=== PATIENT | female | born 1975 | race Caucasian/White ===

== ENCOUNTER 2017-08-31 15:18 | Outpatient (CLI) | payer BC ==
[2017-08-31 17:45] LABS: BASOPHILS % (AUTO) 0.6 %; EOSINOPHILS % (AUTO) 0.5 %; HGB - HEMOGLOBIN 11.4 g/dL (12.0-16.0); LYMPHOCYTES # (AUTO) 1.4 10^3/uL (1.5-3.5); MEAN CORPUSCULAR HEMOGLOBIN 29.3 pg (27.0-31.0); MEAN CORPUSCULAR VOLUME 88.6 fL (81.0-99.0); MEAN PLATELET VOLUME 9.9 fL (7.9-10.8); MONOCYTES # (AUTO) 0.4 10^3/uL (0.0-1.0); MONOCYTES % (AUTO) 9.2 %; NEUTROPHILS % (AUTO) 52.7 %; PLT - PLATELET COUNT 162 10^3/uL (130-450); RED CELL DISTRIBUTION WIDTH 13.7 % (12.0-15.0); WHITE BLOOD COUNT 3.8 x10^3/uL (4.8-10.8)
[2017-08-31 18:24] LABS: ALBUMIN 4.4 g/dL (3.2-5.5); ALBUMIN/GLOBULIN RATIO 1.7 (1.0-2.2); BILIRUBIN,TOTAL 0.3 mg/dL (0.2-1.0); CALCIUM 8.9 mg/dL (8.5-10.3); CREATININE 0.5 mg/dL (0.4-1.0)
[2017-08-31 18:30] LABS: T4 (THYROXINE) 8.27 ug/dL (6.09-12.23)
[2017-08-31 18:34] LABS: THYROID STIMULATING HORMONE 0.9 uIU/mL (0.34-5.60)
[2017-08-31 18:36] LABS: FREE T4 (FREE THYROXINE) 0.84 ng/dL (0.58-1.64)
[2017-09-03 11:21] LABS: THYROID PEROXIDASE ANTIBODIES 1 IU/mL (<9)
== END 2017-08-31 15:19 | disposition home or self-care (01) ==
LOC: LAB.F 15:18
PROVIDERS: ATTEND Nurse Practitioner Family
DX: R53.83 Other fatigue (principal); E55.9 Vitamin D deficiency, unspecified
CPT/HCPCS: 36415; 80053; 82306; 84436; 84439; 84443; 84481; 85025; 86376; 86800

== ENCOUNTER 2017-10-12 13:38 | Outpatient (CLI) | payer BC ==
[2017-10-12 17:40] LABS: BASOPHILS % (AUTO) 0.4 %; EOSINOPHILS % (AUTO) 0.7 %; HGB - HEMOGLOBIN 12.7 g/dL (12.0-16.0); LYMPHOCYTES # (AUTO) 1.4 10^3/uL (1.5-3.5); LYMPHOCYTES % (AUTO) 27.4 %; MEAN CORPUSCULAR HEMOGLOBIN 29.7 pg (27.0-31.0); MEAN CORPUSCULAR HGB CONC 32.5 g/dL (32.0-36.0); MEAN CORPUSCULAR VOLUME 91.4 fL (81.0-99.0); MEAN PLATELET VOLUME 9.7 fL (7.9-10.8); MONOCYTES # (AUTO) 0.4 10^3/uL (0.0-1.0); MONOCYTES % (AUTO) 8.8 %; NEUTROPHILS # (AUTO) 3.1 10^3/uL (1.5-6.6); NEUTROPHILS % (AUTO) 62.7 %; PLT - PLATELET COUNT 160 10^3/uL (130-450); RED BLOOD COUNT 4.28 10^6/uL (4.20-5.40); RED CELL DISTRIBUTION WIDTH 14.4 % (12.0-15.0)
[2017-10-12 18:19] LABS: % IRON SATURATION 15 % (20-50); IRON 43 ug/dL (28-170); TOTAL IRON BINDING CAPACITY 283 ug/dL (250-450); TRANSFERRIN 202 mg/dL (192-382)
== END 2017-10-12 13:39 | disposition home or self-care (01) ==
LOC: LAB.F 13:38
PROVIDERS: ATTEND Nurse Practitioner Family
DX: E55.9 Vitamin D deficiency, unspecified (principal); D50.9 Iron deficiency anemia, unspecified; R53.83 Other fatigue
CPT/HCPCS: 36415; 82306; 82728; 83540; 84466; 85025

== ENCOUNTER 2017-10-26 14:30 | Outpatient (CLI) | payer BC ==
[2017-10-26 19:07] LABS: ALBUMIN 4.1 g/dL (3.2-5.5); ALBUMIN/GLOBULIN RATIO 1.5 (1.0-2.2); BILIRUBIN,TOTAL 0.5 mg/dL (0.2-1.0); CALCIUM 8.7 mg/dL (8.5-10.3); CREATININE 0.6 mg/dL (0.4-1.0); TOTAL PROTEIN 6.9 g/dL (6.7-8.2)
[2017-10-26 19:08] LABS: FOLATE 23.27 ng/mL (5.90 - >24.8)
== END 2017-10-26 14:31 | disposition home or self-care (01) ==
LOC: LAB.F 14:30
PROVIDERS: ATTEND Nurse Practitioner Family
DX: E78.5 Hyperlipidemia, unspecified (principal); R53.83 Other fatigue; D64.9 Anemia, unspecified
CPT/HCPCS: 36415; 80053; 82607; 82746

== ENCOUNTER 2017-10-26 17:01 | Outpatient (CLI) | payer BC ==
--- NOTE | 2017-10-28 19:59 | Ultrasound Report ---
EXAM: THYROID ULTRASOUND EXAM DATE: 10/26/2017 06:24 PM. CLINICAL HISTORY: Increased neck pressure. History of multiple thyroid cysts. COMPARISON: 08/30/2015. TECHNIQUE: Real time sonographic imaging of the thyroid was performed by the wood sash and frame carpenter. Multiple re presentative static images were saved for review. FINDINGS: THYROID GLAND: Right Lobe: 4.8 x 1.4 x 1.7 cm, volume 5.9 cc. Normal background echotexture. Right Lobe Nodules: 1. Partially cystic nodule with no suspicious features, inferior pole, 1.0 x 0.6 x 0.9 cm, previously 1.2 x 0.8 x 1.2 cm. 2. Cyst with irregular margins, inferior pole, 0.6 x 0.4 x 0.5 cm. 3. Colloid cyst, inferior pole, 0.6 x 0.4 x 0.5 cm, previously 0.5 x 0.3 x 0.4 cm. Left Lobe: 4.2 x 1.4 x 1.6 cm, volume 4.9 cc. Normal background echotexture. Left Lobe Nodules: New heterogeneous mixed isoechoic/hypoechoic nodule with irregular/infiltrative ma rgins, midportion, 1.4 x 0.9 x 1.1 cm. Isthmus: 0.2 cm AP. Isthmic Nodules: None. LYMPH NODES: No adenopathy demonstrated in the central or lateral compartment. OTHER: None. IMPRESSION: 1. New heterogeneous left thyroid nodule with irregular/infiltrative margins, [place] high suspicion sono graphic pattern. Recommend tissue sampling with FNA. 2. No significant interval change in size or appearance of previously demonstrated partially cystic r ight thyroid nodule. 3. A cyst with irregular margins in the right inferior pole may represent a collapsing cyst. Management recommendations are based on 2015 [place] [employer] Management Guidelines for A dult Patients with Thyroid Nodules and Differentiated Thyroid Cancer. [facility] Referring Provider Line: [phone] SITE ID: [id number]
== END 2017-10-26 17:02 | disposition home or self-care (01) ==
LOC: DI 17:01
PROVIDERS: ATTEND Nurse Practitioner Family
DX: E04.1 Nontoxic single thyroid nodule (principal); E78.5 Hyperlipidemia, unspecified; R53.83 Other fatigue; D64.9 Anemia, unspecified
CPT/HCPCS: 36415; 76536; 80053; 82607; 82746

== ENCOUNTER 2018-08-26 08:40 | Outpatient (CLI) | payer BC ==
[2018-08-26 17:54] LABS: BASOPHILS % (AUTO) 0.5 %; EOSINOPHILS % (AUTO) 1.1 %; HGB - HEMOGLOBIN 13.1 g/dL (12.0-16.0); LYMPHOCYTES % (AUTO) 32.1 %; MEAN CORPUSCULAR HEMOGLOBIN 30.4 pg (27.0-31.0); MEAN CORPUSCULAR HGB CONC 33.1 g/dL (32.0-36.0); MEAN CORPUSCULAR VOLUME 91.8 fL (81.0-99.0); MEAN PLATELET VOLUME 9.9 fL (7.9-10.8); MONOCYTES # (AUTO) 0.3 10^3/uL (0.0-1.0); MONOCYTES % (AUTO) 9.5 %; NEUTROPHILS # (AUTO) 1.8 10^3/uL (1.5-6.6); NEUTROPHILS % (AUTO) 56.8 %; PLT - PLATELET COUNT 154 10^3/uL (130-450); RED CELL DISTRIBUTION WIDTH 13.4 % (12.0-15.0); WHITE BLOOD COUNT 3.1 x10^3/uL (4.8-10.8)
[2018-08-26 18:47] LABS: ALBUMIN 4.6 g/dL (3.2-5.5); ALBUMIN/GLOBULIN RATIO 1.6 (1.0-2.2); ALKALINE PHOSPHATASE 52 IU/L (42-121); ALT ALANINE AMINOTRANSFERASE 14 IU/L (10-60); AST ASPARTATE AMINOTRANSFERASE 19 IU/L (10-42); BILIRUBIN,TOTAL 0.7 mg/dL (0.2-1.0); BUN - BLOOD UREA NITROGEN 12 mg/dL (6-20); CARBON DIOXIDE - CO2 28 mmol/L (21-32); CHLORIDE 101 mmol/L (101-111); CHOL/HDL RATIO 3.1 (<4.4); CHOLESTEROL 176 mg/dL; CREATININE 0.6 mg/dL (0.4-1.0); GFR - MDRD 109 (>89); GLUCOSE 97 mg/dL (70-100); HDL CHOLESTEROL 56 mg/dL; IRON 80 ug/dL (28-170); LDL CHOLESTEROL,CALCULATED 101 mg/dL; LDL/HDL RATIO 1.8 (<4.4); SODIUM 137 mmol/L (135-145); TOTAL PROTEIN 7.5 g/dL (6.7-8.2); VLDL CHOLESTEROL 19 mg/dL
[2018-08-26 18:53] LABS: T4 (THYROXINE) 7.83 ug/dL (6.09-12.23)
[2018-08-26 18:57] LABS: FREE T3 4.4 pg/mL (2.5-3.9)
[2018-08-26 18:59] LABS: FREE T4 (FREE THYROXINE) 0.82 ng/dL (0.58-1.64)
[2018-08-26 19:00] LABS: THYROID STIMULATING HORMONE 1.84 uIU/mL (0.34-5.60)
[2018-08-26 19:02] LABS: FERRITIN 23.6 ng/mL (11.0-306.8)
[2018-08-27 07:12] LABS: PROGESTERONE <0.5 ng/mL
== END 2018-08-26 08:41 | disposition home or self-care (01) ==
LOC: LAB.F 08:40
PROVIDERS: ATTEND Nurse Practitioner Family
DX: Z00.00 Encounter for general adult medical examination without abnormal findings (principal); F32.81 Premenstrual dysphoric disorder; E55.9 Vitamin D deficiency, unspecified; E78.5 Hyperlipidemia, unspecified; E03.2 Hypothyroidism due to medicaments and other exogenous substances
CPT/HCPCS: 36415; 80053; 80061; 82306; 82672; 82728; 83540; 83721; 84144; 84270; 84403; 84436; 84439; 84443; 84481; 85025

== ENCOUNTER 2020-06-14 17:41 | Outpatient (CLI) | payer OTHER | END 2020-06-14 17:42 | disposition home or self-care (01) | LOC: COV 17:41 | PROVIDERS: ATTEND Family Medicine | DX: M79.10 Myalgia, unspecified site (principal); R53.83 Other fatigue; R07.0 Pain in throat; R09.81 Nasal congestion; J34.89 Other specified disorders of nose and nasal sinuses; Z20.822 Contact with and (suspected) exposure to COVID-19 ==